=== PATIENT | female | born 1965 | race Caucasian/White ===

== ENCOUNTER → 2021-11-29 09:38 | Outpatient (CLI) | payer OTHER, SELFPAY ==
--- NOTE | 2021-11-29 09:43 | DI.RAD.S_ITS ---
PROCEDURE: [place] JOINT INJECTION LARGE RT INDICATIONS: Other bursitis of hip, right hip COMPARISON: None. TECHNIQUE: The indications, alternatives, benefits, risks, and complications of the procedure were explained to the patient. Written informed consent was obtained and placed in the chart. The patient was placed in an appropriate position on the fluoroscopy table, and a site was chosen for percutaneous access under fluoroscopic guidance. The site was prepped and draped in a sterile fashion. Local anesthetic was administered using a 1% lidocaine solution. A hypodermic or spinal needle was then used to access the symptomatic joint. Intra-articular location of the needle tip was confirmed by injecting a small amount of contrast, followed by steroid administration. The needle was then withdrawn, and a bandage applied to the puncture site. FINDINGS: Joint injected: Right hip Medications injected: 3 mL of 40 mg/mL Kenalog and 0.5% Ropivacaine mixture. Patient's pain before injection: 9 out of 10. Patient's pain after injection: 6 out of 10. Complications: None. IMPRESSION: Successful fluoroscopically guided administration of steroid and anaesthetic solution into the right joint. Dictated by: Chloe Fried MD, PhD on 11/29/2021 at 12:50 Approved by: Chloe Fried MD, PhD on 11/29/2021 at 12:51
== END ==
PROVIDERS: Referring Provider Counselor Mental Health; Visit Provider Counselor Mental Health
DX: M70.71 Other bursitis of hip, right hip (principal); M16.11 Unilateral primary osteoarthritis, right hip
CPT/HCPCS: 20610; 77002

== ENCOUNTER → 2022-05-20 09:57 | Outpatient (CLI) | payer OTHER, SELFPAY ==
--- NOTE | 2022-05-20 10:00 | DI.RAD.S_ITS ---
PROCEDURE: [place] JOINT INJECTION LARGE RT INDICATIONS: Arthritis Right hip COMPARISON: [facility], , [place] JOINT INJECTION LARGE RT, 11/29/2021, 10:19. TECHNIQUE: The indications, alternatives, benefits, risks, and complications of the procedure were explained to the patient. Written informed consent was obtained and placed in the chart. The patient was placed in an appropriate position on the fluoroscopy table, and a site was chosen for percutaneous access under fluoroscopic guidance. The site was prepped and draped in a sterile fashion. Local anesthetic was administered using a 1% lidocaine solution. A hypodermic or spinal needle was then used to access the symptomatic joint. Intra-articular location of the needle tip was confirmed by injecting a small amount of contrast, followed by steroid administration. The needle was then withdrawn, and a bandage applied to the puncture site. FINDINGS: Joint injected: Right hip Medications injected: 4 mL of 40 mg/mL Kenalog and 0.5% Ropivacaine mixture. Patient's pain before injection: 7 out of 10. Patient's pain after injection: 1 out of 10. Complications: None. IMPRESSION: Successful fluoroscopically guided administration of steroid and anaesthetic solution into the right hip joint. Dictated by: Graeme Amanda M.D. on 05/20/2022 at 14:13 Approved by: Graeme Amanda M.D. on 05/20/2022 at 14:13
== END ==
PROVIDERS: PCP Physician Assistant; Referring Provider Counselor Mental Health; Visit Provider Counselor Mental Health
DX: M16.11 Unilateral primary osteoarthritis, right hip (principal)
CPT/HCPCS: 20610

== ENCOUNTER → 2022-08-31 13:33 | Outpatient (CLI) | payer OTHER, SELFPAY ==
--- NOTE | 2022-08-31 | DI.RAD.S_ITS ---
PROCEDURE: [place] JOINT INJECTION LARGE RT INDICATIONS: Pain in right hip COMPARISON: [facility], [place], [place] JOINT INJECTION LARGE RT, 11/29/2021, 10:19. [facility], [place], XR PELVIS WITH LATERAL HIP RIGHT, 08/16/2022, 9:07. [facility], [place], [place] JOINT INJECTION LARGE RT, 05/20/2022, 10:33. TECHNIQUE: The indications, alternatives, benefits, risks, and complications of the procedure were explained to the patient. Written informed consent was obtained and placed in the chart. The patient was placed in an appropriate position on the fluoroscopy table, and a site was chosen for percutaneous access under fluoroscopic guidance. The site was prepped and draped in a sterile fashion. Local anesthetic was administered using a 1% lidocaine solution. A hypodermic or spinal needle was then used to access the symptomatic joint. Intra-articular location of the needle tip was confirmed by injecting a small amount of contrast, followed by steroid administration. The needle was then withdrawn, and a bandage applied to the puncture site. FINDINGS: The right femoral head appears flattened. Joint injected: Right Medications injected: 4 mL of 40 mg/mL Kenalog and 0.5% Ropivacaine mixture. Complications: None. IMPRESSION: Successful fluoroscopically guided administration of steroid and anaesthetic solution into the right hip joint. Flattening of the right femoral head. This could be due to subchondral collapse. There is [id number] joint space loss. This could be seen in avascular necrosis. Consider MRI for further evaluation. Dictated by: Isaiah Carrera M.D. on 08/31/2022 at 15:14 Approved by: Isaiah Carrera M.D. on 08/31/2022 at 15:18
== END ==
PROVIDERS: PCP Physician Assistant; Referring Provider Student in an Organized Health Care Education/Training Program; Visit Provider Student in an Organized Health Care Education/Training Program
DX: M25.551 Pain in right hip (principal)
CPT/HCPCS: 20610